=== PATIENT | female | born 1960 | race Caucasian/White ===

== ENCOUNTER → 2016-10-13 | Outpatient (CLI) | payer BC ==
[~2016-10-13] MED LIST: VICODIN 5/500 T1 TAB PO
--- NOTE | 2016-10-13 16:27 | RADIOLOGY REPORT PS360 ---
CHEST(2 VIEWS-NOT PORTABLE) HISTORY: Right-sided back/chest pain UPPER BACK PAIN ON RT SIDE COMPARISON: None available FINDINGS: The cardiomediastinal silhouette and pulmonary vascularity are within normal limits. The lungs are clear without infiltrates, suspicious nodules, or pleural effusions. No acute bony abnormalities. There is patchy density present in the left lung base felt to be related to pericardial fat pad. This may be confirmed with follow-up. Mild degenerative change thoracic spine. IMPRESSION: No acute finding, please see above for details
--- NOTE | 2016-10-19 10:41 | RADIOLOGY REPORT PS360 ---
DIG MAMM-SCREEN JAZZMINE W/CAD CAD Screening ORDERING PHYSICIAN : Damaris Dinh MD PATIENT AGE: 55 years GENDER: Female COMPARISON: Previous mammograms: September also 2013 2011 and 2010 mammograms utilized INDICATION: Routine screening 55-year-old. No hormones. Partial hysterectomy. No new complaints. Mother with breast cancer 54 TECHNIQUE: Standard CC and MLO images were obtained. R2 CAD reviewed. FINDINGS: Low-density breast bilaterally RIGHT BREAST: Right breast is stable with no new findings. Follow-up in one year. Progressive fatty replacement. LEFT BREAST: Studies dating back to 2011 show some scattered subtle low-density areas of nodularity. These seem to have fluctuated but fairly stable since 2014 could reflect some small underlying cyst but no significant areas of density identified. I would emphasized and encouraged follow-up mammogram bilateral one year IMPRESSION: No significant interval change. Follow-up one year recommended and should be encouraged BI-RADS CATEGORY: 2_Benign RECOMMENDED FOLLOWUP: 12M 12 MONTH FOLLOW-UP (A letter has been sent to the patient regarding results of the study.)
== END ==
LOC: RAD 15:58
DX: M54.9 Dorsalgia, unspecified (principal); Z12.31 Encounter for screening mammogram for malignant neoplasm of breast
CPT/HCPCS: G0202